=== PATIENT | female | born 1970 | race Caucasian/White ===

== ENCOUNTER 2016-08-20 18:16 | Emergency (ER) ==
[2016-08-20] MEDS ORDERED: ASPIRIN PO STA (18:43)
[2016-08-20] MEDS ORDERED: NITROGLYCERIN SL PRN (18:43)
[2016-08-20] MEDS ORDERED: SOLU-MEDROL IV ONE (18:44)
[2016-08-20] MEDS ORDERED: DUONEB (A & A) INH ONE (18:45)
--- NOTE | 2016-08-20 18:46 | PROVIDER DOCUMENTATION ---
HPI-Respiratory General - General Chief Complaint: Shortness of Breath Stated Complaint: SOB, CP Time Seen by Provider: 08/20/16 18:36 Source: patient Allergies/Adverse Reactions: Patient Allergies Allergy/AdvReac Type Severity Reaction Status Date / Time No Known Allergies Allergy Verified 08/20/16 19:31 - History of Present Illness-Resp Nature of Presenting Problem: 46 y/o f presents to the ed with sob and chest wall pain X 2 weeks. pt reports she is a heavy smoker and has has never suffered sob and chest wall pain like she has been over the past X 2 weeks. pt denies any fever/chills. Review of Systems - Adult - REVIEW OF SYSTEMS - ADULT Constitutional: denies: chills, fever Cardiovascular: reports: chest pain. denies: palpitations Respiratory: reports: shortness of breath, wheezing. denies: dyspnea on exertion, excessive sputum production Past History - Adult - PAST MEDICAL HISTORY-ADULT Review of Records: reports: Old Records Reviewed, Nursing Assessment Review, Medications Reviewed Major Childhood Illnesses: reports: denies history Cardiovascular: reports: denies history Respiratory: reports: denies history Gastrointestinal: reports: denies history Obstetrical/Gynecological: reports: denies history Genitourinary: reports: denies history Musculoskeletal: reports: denies history Neurological: reports: denies history Psychiatric: reports: depression Endocrine/Immune: reports: denies history Other Conditions: reports: denies history - PRIOR SURGERIES/PROCEDURES Surgical/Procedure History: reports: - IMMUNIZATION STATUS Childhood Immunizations: See Nurse Assessment Flu Vaccine: See Nurse Assessment - FAMILY HISTORY Family History: reviewed, not pertinent - SOCIAL HISTORY Smoking: cigarettes, greater than 1 pack/day Provider spent 3-5 mins advising pt. on dangers of tobacco.: Discussed manners to quit use, and f/u contacts for add'l counseling. Substance Use: none/never Alcohol Use Frequency: never Physical Exam-General - PHYSICAL EXAM-ADULT Initial Vital Signs Reviewed: Yes - CONSTITUTIONAL General Appearance: alert, no apparent distress - EYES Eyes: PERRL/EOMI, pink conjunctivae, fundi clear, no AV nicking - HEAD, EARS, NOSE, MOUTH & THROAT HENMT: normocephalic/atraumatic, moist mucous membranes, normal ENT inspection, TMs normal - NECK Neck: non-tender, full range of motion, supple - RESPIRATORY Respiratory: chest non-tender, decreased breath sounds, wheezing - CARDIOVASCULAR Cardiovascular: normal peripheral pulses, regular rate, rhythm, no edema - GASTROINTESTINAL (ABDOMEN) Abdominal Exam: normal bowel sounds, non tender, soft - MUSCULOSKELETAL Back Exam: normal inspection - SKIN Integumentary: normal color, normal turgor, warm/dry - PSYCHIATRIC Psych/Mental Status: normal mood/affect, normal thought content, normal thought process, oriented x 3 Progress - PLAN OF CARE/RESULTS Progress/Plan/Lab Results: Laboratory Tests 08/20/16 08/20/16 08/20/16 19:10 19:10 19:10 WBC 6.80 RBC 4.08 L Hgb 10.7 L Hct 33.2 L MCV 81.4 MCH 26.2 L MCHC 32.2 L RDW Std Deviation 15.6 H Plt Count 316 MPV 9.8 Neut % (Auto) 66.6 Lymph % (Auto) 23.5 Churchill % (Auto) 7.4 Eos % (Auto) 1.2 Baso % (Auto) 1.3 H Neut # (Auto) 4.53 Lymph # (Auto) 1.60 Churchill # (Auto) 0.50 Eos # (Auto) 0.08 Baso # (Auto) 0.09 PT 10.7 INR 1.01 PTT (Actin FS) 24.6 Troponin T < 0.010 plan of care: labs, imaging Orders Category Date Time Status Cardiac Monitoring DIRECTED Care 08/20/16 18:43 Active Saline Loc NOW Care 08/20/16 18:43 Active CHEST-2 VIEWS [RAD] Stat Exams 08/20/16 18:43 Taken CBC WITH ELECTRONIC DIFF [HEME] Stat Lab 08/20/16 19:10 Completed CK PROFILE [SP CHEM] Stat Lab 08/20/16 19:10 Received COMPREHENSIVE METABOLIC PANEL [CHEM] Stat Lab 08/20/16 19:10 Received D-DIMER [CHEM] Stat Lab 08/20/16 19:10 Received MAGNESIUM [CHEM] Stat Lab 08/20/16 19:10 Received PRO B-NATRIURETIC PEPTIDE Stat Lab 08/20/16 19:10 Received PROTIME WITH INR [COAG] Stat Lab 08/20/16 19:10 Completed PTT [COAG] Stat Lab 08/20/16 19:10 Completed TROPONIN T Stat Lab 08/20/16 19:10 Completed Albuterol 2.5MG/Ipratrop 0.5MG [Duoneb (A & A)] Med 08/20/16 18:45 Discontinued 3 ml INH NOW ONE Aspirin Med 08/20/16 18:43 Discontinued 325 mg PO STAT STA Methylprednisolone Sod Succ [Solu-Medrol] Med 08/20/16 18:44 Discontinued 125 mg IV NOW ONE Nitroglycerin Sl [Nitroglycerin] Med 08/20/16 18:43 Active 0.4 mg SL Q5M PRN PRN Aerosol Treatments Routine Oth 08/20/16 18:45 Active Aerosol Treatments Stat Oth 08/20/16 18:45 Active EKG [EKG] Stat Ther 08/20/16 18:23 Ordered Vital Signs - 24 hr 08/20/16 18:31 Temperature 98.3 F Pulse Rate 91 H Respiratory 18 Rate Blood Pressure 142/92 O2 Sat by Pulse 100 Oximetry - EKG 1 Time of EKG reading by physician:: 18:46 EKG Read and Signed by:: Trey Ponce Rate: 85 Rhythm: NSR - XRAY 1 XRAY Study: Chest XRAY Interpretation: NAD Departure - Departure Time of Disposition Order: 20:12 DIAGNOSIS: COPD exacerbation Disposition: HOME 01 Certified Medical Emergency: Emergent Condition: Stable Additional Instructions: ED Follow Up Instructions: You have been treated by a care provider in the Emergency Department. These instructions are being provided to you so you can have an understanding of how to care for yourself upon discharge. Upon discharge from the Emergency Department, you are responsible for making arrangements for follow-up care by a physician of your choice. Take all prescribed medications as directed. Return to the Emergency Department immediately for any new or worsening symptoms. You may call the Physician Referral phone number at [phone] to obtain a list of Physicians who are taking new patients. Prescriptions: Methylprednisolone [Medrol Dosepak] 4 mg PO DIRECTED #1 package Attestation - Scribe Verification/Attestation Scribe:: Brianna Quarles Acting as Scribe for:: Trey Ponce Scribdean documention review:: This chart was documented by a scribe and accurately reflects the service the provider performed and the decisions made by the provider.
[2016-08-20 19:16] LABS: MANUAL DIFF NEEDED? NO
[2016-08-20 19:20] LABS: BASO% 1.3 % (0.0-0.8); EOS# 0.08 X1000 (0.0-0.7); EOS% 1.2 % (0.0-10.0); HEMATOCRIT 33.2 % (37.0-47.0); HEMOGLOBIN 10.7 g/dL (12.0-16.0); LYMPH% 23.5 % (20.5-51.1); MCH 26.2 PG (27-31); MCHC 32.2 g/dL (33-37); MCV 81.4 FL (81-99); MONO% 7.4 % (1.7-9.3); MPV 9.8 FL (7.4-10.4); NEUT% 66.6 % (42.2-75.2); PLT 316 X1000 (130-400); RBC 4.08 XMIL (4.2-5.4)
[2016-08-20 19:27] LABS: INR 1.01; PROTIME 10.7 Seconds (9.2-11.7); PTT 24.6 Seconds (22.0-36.0)
[2016-08-20 19:56] LABS: AGAP 13; ALBUMIN 4.2 g/dL (3.5-5.0); ALKALINE PHOSPHATASE 58 U/L (32-104); BUN 8 mg/dL (8-22); CALCIUM 8.7 mg/dL (8.8-10.2); CHLORIDE 106 mmol/L (98-107); CK PROFILE 55 U/L (24-173); COSMO 283; GOT 19 U/L (10-30); GPT 21 U/L (10-36); MAGNESIUM 2.1 mg/dL (1.5-2.7); POTASSIUM 3.5 mmol/L (3.5-5.1); SODIUM 142 mmol/L (136-145); TCO2 23 mmol/L (25-35); TOTAL BILIRUBIN 0.15 mg/dL (0.20-1.00); TOTAL PROTEIN 7.1 g/dL (6.3-8.3)
[2016-08-20 20:24] VITALS: BP 139/88
--- NOTE | 2016-08-21 05:26 | EKG Report ---
Test Performed on : 08/20/2016 6:27:20 PM Test Reason : CP/SOB Blood Pressure : / mmHG Vent. Rate : 085 BPM Atrial Rate : 085 BPM P-R Int : 152 ms QRS Dur : 072 ms QT Int : 378 ms P-R-T Axes : 058 042 046 degrees QTc Int : 449 ms Normal sinus rhythm. Cannot rule out Anterior infarct , age undetermined Abnormal ECG No previous ECGs available Unconfirmed Result
--- NOTE | 2016-08-21 07:58 | Diag Imaging Result Document ---
PROCEDURE NAME: CHEST-2 VIEWS - 08/20/2016 2 VIEWS OF THE CHEST: FINDINGS: There is no evidence of acute cardiac or pulmonary disease. There are no previous studies. IMPRESSION: No evidence of acute disease.
== END 2016-08-20 21:20 | disposition home or self-care (01) ==
LOC: ED 18:16
DX: J44.1 Chronic obstructive pulmonary disease with (acute) exacerbation (principal); R06.02 Shortness of breath; R07.89 Other chest pain; R06.2 Wheezing; F17.210 Nicotine dependence, cigarettes, uncomplicated; Z71.6 Tobacco abuse counseling
CPT/HCPCS: 36415; 71020; 80053; 82550; 83735; 83880; 84484; 85025; 85379; 85610; 85730; 93005; 96374; J2930